=== PATIENT | male | born 1950 | race African-American/Black ===

== ENCOUNTER 2023-10-28 08:15 | Outpatient (CLI) | payer MEDICARE, OTHER, SELFPAY ==
--- NOTE | ~2023-10-28 | MR_ITS ---
EXAMINATION: MR hand LT wo con DATE: 10/28/2023 09:01 INDICATION: Left thumb pain and osteomyelitis. TECHNIQUE: Magnetic resonance imaging (MRI) of the left hand was performed without intravenous contra st. COMPARISON: None. FINDINGS: Bone alignment is normal. No fracture. There are erosions of first distal phalanx with fabienne a-like marrow signal intensity consistent with osteomyelitis. No involvement of the proximal articula r surface. 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 There is mild osteoarthritis of most of the interphalangeal joints and moderate ost eoarthritis of second distal interphalangeal joint. The flexor and extensor tendons are normal. IMPRESSION: 1. Osteomyelitis of first distal phalanx. Reviewed, dictated and finalized at location A.
== END 2023-10-28 08:16 | disposition home or self-care (01) ==
PROVIDERS: PCP Internal Medicine; Visit Provider Orthopaedic Surgery Hand Surgery
DX: M86.142 Other acute osteomyelitis, left hand (principal)
CPT/HCPCS: 73218